=== PATIENT | male | born 1965 | race Caucasian/White ===

== ENCOUNTER 2019-01-29 06:45 | Inpatient (IN) | payer SELFPAY ==
[~2019-01-29] VITALS: Ht 177.8 cm; Wt 85.7 kg
[2019-01-29 06:45] VITALS: BP_SYST 158
[2019-01-29] MEDS ORDERED: NACL 0.9% 1,000 ML IV ONE (07:00)
[2019-01-29] MEDS ORDERED: ONDANSETRON HCL 4 MG/2 ML VIAL IVP ONE (07:00)
[2019-01-29] MEDS ORDERED: KETOROLAC TROMETHAMINE 30 MG VIAL IVP ONE (07:00)
[2019-01-29 07:38] LABS: BASOPHILS # (AUTO) 0.1 K/uL (0.0-0.2); BASOPHILS % (AUTO) 0.5 % (0.0-2.0); EOSINOPHILS # (AUTO) 0.5 K/uL (0.0-0.4); EOSINOPHILS % (AUTO) 4.5 % (0.0-4.0); HEMATOCRIT 39.6 % (36-54); HEMOGLOBIN 13.2 g/dL (14.0-18.0); LYMPHOCYTES # (AUTO) 0.7 K/uL (1.0-5.5); LYMPHOCYTES % (AUTO) 6.1 % (20.5-51.5); MEAN CORPUSCULAR HEMOGLOBIN 30 pg (27-31); MEAN CORPUSCULAR HGB CONC 33 % (32-36); MEAN CORPUSCULAR VOLUME 91 fL (79.0-98.0); MONOCYTES # (AUTO) 0.7 K/uL (0.0-1.0); MONOCYTES % (AUTO) 6.3 % (1.7-9.3); NEUTROPHILS # (AUTO) 9.7 K/uL (1.8-7.7); NEUTROPHILS % (AUTO) 82.6 % (40.0-70.0); PLATELET COUNT (AUTO) 443 K/uL (130-430); RED BLOOD CELL COUNT(AUTO) 4.35 MIL/uL (4.2-6.2); RED CELL DISTRIBUTION WIDTH 13.9 % (9.0-15.0); WHITE BLOOD COUNT (AUTO) 11.8 K/uL (4.8-10.8)
[2019-01-29 07:52] LABS: CALCIUM 8.3 mg/dL (8.4-11.0); CREATININE 0.74 mg/dL (0.55-1.30)
[2019-01-29 07:57] LABS: ALBUMIN 2.7 g/dL (3.4-4.8); TOTAL BILIRUBIN 0.4 mg/dL (0.0-1.0)
[2019-01-29] MEDS ORDERED: MELA5TAB21 PO (09:03)
[2019-01-29] MEDS ORDERED: LANS15CA14 PO (09:03)
[2019-01-29] MEDS ORDERED: NAPR220C15 PO (09:03)
[2019-01-29] MEDS ORDERED: PANTOPRAZOLE SODIUM 40 MG TAB PO ONE (09:30)
[2019-01-29] MEDS ORDERED: DOCUSATE SODIUM 100 MG/10 ML UDC PO PRN (09:30)
[2019-01-29] MEDS ORDERED: HYDROcodone/ACETAMIN 7.5-325 MG TAB PO PRN (09:30)
[2019-01-29] MEDS ORDERED: MORPHINE 2 MG/ML INJ. SYRINGE IVP PRN (09:30)
[2019-01-29] MEDS ORDERED: ONDANSETRON HCL 4 MG/2 ML VIAL IVP PRN (09:30)
[2019-01-29] MEDS ORDERED: ACETAMINOPHEN 500 MG TABLET PO PRN (09:30)
[2019-01-29 10:07] VITALS: BP_SYST 138
[2019-01-29 10:09] LABS: AMYLASE 434 U/L (0-100); CHOLESTEROL 104 mg/dL (<200); FREE T4 (FREE THYROXINE) 0.8 ng/dL (0.6-1.6); HDL CHOLESTEROL 22 mg/dL (>45); INR 1.1 (0.80-1.20); LDL CHOLESTEROL 72 mg/dL (<100); PHOSPHORUS 3.1 mg/dL (2.7-4.5); PROTHROMBIN TIME 10.9 SECS (9.5-12.5); TRIGLYCERIDES 52 mg/dL (30-150)
[2019-01-29 10:21] LABS: ALCOHOL, BLOOD < 3 mg/dL (<10)
[2019-01-29] MEDS: D5NS 1,000 ML IV SCH ×3 (10:30→23:14)
[2019-01-29 10:32] LABS: BILIRUBIN,URINE NEGATIVE (NEGATIVE); BLOOD, URINE NEGATIVE (NEGATIVE); CLARITY/URINE CLEAR (CLEAR); COLOR,URINE YELLOW (YELLOW); GLUCOSE,URINE NEGATIVE (NEGATIVE); KETONES,URINE NEGATIVE (NEGATIVE); LEUKOCYTE ESTERASE ,URINE NEGATIVE (NEGATIVE); NITRITE, URINE NEGATIVE (NEGATIVE); PROTEIN URINE TRACE (NEGATIVE); UROBILINOGEN,URINE 0.2 (0.2-1.0)
[2019-01-29 10:41] LABS: BACTERIA,URINE FEW /HPF (None Seen); MUCUS,URINE None Seen /LPF (None Seen); RBC,URINE 0-3 /HPF (0-3); WBC,URINE 0-3 /HPF (0-3)
[2019-01-29 10:50] LABS: BARBITURATE, URINE NEGATIVE (NEG <=200); BENZODIAZEPINE, URINE NEGATIVE (NEG <=150); CANNABINOID, URINE NEGATIVE (NEG <=50); COCAINE, URINE NEGATIVE (NEG <=150); METHAMPHETAMINES SCREEN,URINE NEGATIVE (NEG <=500); OPIATE, URINE NEGATIVE (NEG <=100); PHENCYCLIDINE SCREEN,URINE NEGATIVE (NEG <=25); UR TRICYCLIC ANTIDEPRESSANTS NEGATIVE (NEG <=300); URINE AMPHETAMINE NEGATIVE (NEG <=500); URINE METHADONE NEGATIVE (NEG <=200); URINE OXYCODONE SCREEN NEGATIVE (NEG <=100); URINE PROPOXYPHENE SCREEN NEGATIVE (NEG <=300)
[2019-01-29] MEDS: KETOROLAC TROMETHAMINE 30 MG VIAL IVP SCH ×2 (14:56→22:56)
[2019-01-29] MEDS: HYDROmorphone 1 MG INJ. 1 MG/ML AMPUL IVP PRN ×2 (15:08→23:07)
[2019-01-29 16:38] VITALS: BP_SYST 125
[2019-01-29 20:00] VITALS: BP_SYST 108
[2019-01-30 00:01] VITALS: BP_SYST 122
[2019-01-30] MEDS: HYDROmorphone 1 MG INJ. 1 MG/ML AMPUL IVP PRN ×5 (01:18→21:42)
[2019-01-30] MEDS: D5NS 1,000 ML IV SCH ×4 (02:25→21:42)
[2019-01-30 05:00] VITALS: BP_SYST 124
[2019-01-30 06:24] LABS: BASOPHILS % (AUTO) 0.6 % (0.0-2.0); EOSINOPHILS # (AUTO) 0.6 K/uL (0.0-0.4); EOSINOPHILS % (AUTO) 7.8 % (0.0-4.0); HEMATOCRIT 36.8 % (36-54); HEMOGLOBIN 12.4 g/dL (14.0-18.0); LYMPHOCYTES # (AUTO) 0.6 K/uL (1.0-5.5); LYMPHOCYTES % (AUTO) 7.8 % (20.5-51.5); MEAN CORPUSCULAR HEMOGLOBIN 31 pg (27-31); MEAN CORPUSCULAR HGB CONC 34 % (32-36); MEAN CORPUSCULAR VOLUME 92 fL (79.0-98.0); MONOCYTES # (AUTO) 0.8 K/uL (0.0-1.0); MONOCYTES % (AUTO) 11.5 % (1.7-9.3); NEUTROPHILS # (AUTO) 5.2 K/uL (1.8-7.7); NEUTROPHILS % (AUTO) 72.3 % (40.0-70.0); PLATELET COUNT (AUTO) 426 K/uL (130-430); RED BLOOD CELL COUNT(AUTO) 4.02 MIL/uL (4.2-6.2); RED CELL DISTRIBUTION WIDTH 14.3 % (9.0-15.0); WHITE BLOOD COUNT (AUTO) 7.2 K/uL (4.8-10.8)
[2019-01-30 07:25] LABS: CALCIUM 8.4 mg/dL (8.4-11.0); CREATININE 0.82 mg/dL (0.55-1.30); POTASSIUM 3.9 mmol/L (3.5-5.1)
[2019-01-30 08:00] VITALS: BP_SYST 133
[2019-01-30] MEDS: KETOROLAC TROMETHAMINE 30 MG VIAL IVP SCH (08:00)
[2019-01-30] MEDS: PANTOPRAZOLE SODIUM 40 MG TAB PO SCH (09:33)
[2019-01-30 12:27] VITALS: BP_SYST 126
[2019-01-30 16:27] VITALS: BP_SYST 142
[2019-01-30 20:22] VITALS: BP_SYST 145
[2019-01-31] MEDS: D5NS 1,000 ML IV SCH ×4 (01:17→16:26)
[2019-01-31 02:33] VITALS: BP_SYST 146
[2019-01-31 06:25] LABS: BASOPHILS % (AUTO) 0.4 % (0.0-2.0); EOSINOPHILS # (AUTO) 0.7 K/uL (0.0-0.4); EOSINOPHILS % (AUTO) 7.7 % (0.0-4.0); HEMATOCRIT 33.7 % (36-54); HEMOGLOBIN 11.3 g/dL (14.0-18.0); LYMPHOCYTES # (AUTO) 0.7 K/uL (1.0-5.5); LYMPHOCYTES % (AUTO) 7.3 % (20.5-51.5); MEAN CORPUSCULAR HEMOGLOBIN 31 pg (27-31); MEAN CORPUSCULAR HGB CONC 34 % (32-36); MEAN CORPUSCULAR VOLUME 91 fL (79.0-98.0); MONOCYTES # (AUTO) 0.9 K/uL (0.0-1.0); MONOCYTES % (AUTO) 9.7 % (1.7-9.3); NEUTROPHILS # (AUTO) 7.1 K/uL (1.8-7.7); NEUTROPHILS % (AUTO) 74.9 % (40.0-70.0); PLATELET COUNT (AUTO) 408 K/uL (130-430); RED BLOOD CELL COUNT(AUTO) 3.69 MIL/uL (4.2-6.2)
[2019-01-31 06:44] LABS: AMYLASE 775 U/L (0-100); CALCIUM 8.1 mg/dL (8.4-11.0); CHLORIDE 108 mmol/L (98-107); CREATININE 0.72 mg/dL (0.55-1.30); GLUCOSE 130 mg/dL (70-99); POTASSIUM 3.8 mmol/L (3.5-5.1); SODIUM SERUM 137 mmol/L (136-145); UREA NITROGEN, BLOOD 12 mg/dL (8-21)
[2019-01-31 06:47] LABS: GFR AFRICAN AMERICAN 146 mL/min (>90)
[2019-01-31 06:49] LABS: ANION GAP < 3 (5-15)
[2019-01-31 07:04] LABS: WHITE BLOOD COUNT (AUTO) 9.5 K/uL (4.8-10.8)
[2019-01-31 08:38] LABS: LIPASE 4176 U/L (73-393)
[2019-01-31] MEDS: PANTOPRAZOLE SODIUM 40 MG TAB PO SCH (08:55)
[2019-01-31 08:56] VITALS: BP_SYST 122
[2019-01-31] MEDS: HYDROmorphone 1 MG INJ. 1 MG/ML AMPUL IVP PRN ×3 (10:31→21:05)
[2019-01-31 12:43] VITALS: BP_SYST 140
[2019-01-31 16:34] VITALS: BP_SYST 141
[2019-01-31 16:35] VITALS: BP_SYST 141
[2019-01-31 20:00] VITALS: BP_SYST 135
[2019-02-01 00:35] VITALS: BP_SYST 121
[2019-02-01] MEDS: D5NS 1,000 ML IV SCH (03:48)
[2019-02-01 07:55] VITALS: BP_SYST 139
[2019-02-01] MEDS: PANTOPRAZOLE SODIUM 40 MG TAB PO SCH (08:43)
[2019-02-01] MEDS: HYDROmorphone 1 MG INJ. 1 MG/ML AMPUL IVP PRN (10:44)
[2019-02-01] MEDS ORDERED: PRO40 PO (11:13)
[2019-02-01 12:01] VITALS: BP_SYST 132
[2019-02-01 12:55] VITALS: BP_SYST 138
== END 2019-02-01 14:40 | disposition home or self-care (01) | DRG 438 ==
LOC: SED 06:45 → SMU 09:16
PROVIDERS: ADMIT Family Medicine; ATTEND Family Medicine
DX: K85.20 Alcohol induced acute pancreatitis without necrosis or infection (principal); N17.0 Acute kidney failure with tubular necrosis; E43 Unspecified severe protein-calorie malnutrition; R18.8 Other ascites; J45.909 Unspecified asthma, uncomplicated; K21.9 Gastro-esophageal reflux disease without esophagitis; E86.0 Dehydration; K57.30 Diverticulosis of large intestine without perforation or abscess without bleeding; F10.10 Alcohol abuse, uncomplicated; D64.9 Anemia, unspecified; Z88.0 Allergy status to penicillin; Z68.27 Body mass index [BMI] 27.0-27.9, adult
CPT/HCPCS: 36415; 71045; 76700-TC; 76857; 80048; 80053; 80061; 80307; 81000-TC; 82040-TC; 82150-TC; 83036; 83605; 83690-TC; 83735-TC; 83880; 84100-TC; 84439; 84443-TC; 84484; 85025; 85610-TC; 85730-TC; 87086; 93005; 96361; 96374; 96375; 99285; G0482; J1170; J1885; J2270; J2405; J7042

== ENCOUNTER 2022-10-12 13:09 | Inpatient (IN) | payer OTHER ==
[~2022-10-12] VITALS: Ht 177.8 cm; Wt 74.4 kg
[~2022-10-12 13:09] MED LIST: LANS15CA14 PO; MELA5TAB21 PO; NAPR220C15 PO
[2022-10-12 13:19] VITALS: BP_SYST 151
--- NOTE | 2022-10-12 13:20 | NUR ---
Placed in room 02 . Placed on awake overnight monitor, blood pressure machine and pulse oximeter. To gown for exam. Side rails up. Report given to CHARLETTE DE.
--- NOTE | 2022-10-12 13:25 | NUR ---
RECEIVED PT FROM CHARLETTE TORRES. BIB SELF FROM HOME, PT STATES HE HAS CHRONIC PANCREATITIS AND HAD C/O OF ABDOMINAL PAIN AND CONSTIPATION. PT IS AAOX4. NO R/A. ABDOMEN SOFT, TENDER, NONDISTENDED. BOWEL SOUNDS ACTIVE X4 QUADS. DISTAL PULSES NORMAL. SKIN CDI, NO EDEMA. SIDERAILS UP X2.
--- NOTE | 2022-10-12 13:27 | NUR ---
DR. JULIO AT BEDSIDE TO ASSESS PT.
[2022-10-12] MEDS ORDERED: ONDANSETRON HCL 4 MG/2 ML VIAL IVP ONE (13:30)
[2022-10-12] MEDS ORDERED: MORPHINE 4 MG INJ. 4 MG/ML VIAL IVP ONE ×2 (13:30→15:00)
[2022-10-12] MEDS ORDERED: NACL 0.9% 1,000 ML IV ONE (13:30)
--- NOTE | 2022-10-12 13:40 | NUR ---
BLOOD OBTAINED AND TAKEN TO LAB.
--- NOTE | 2022-10-12 13:45 | NUR ---
# 20 gauge angiocath placed to LAC. Use of asceptic technique. Opsite placed over site. Blood return noted. Flushed with 10 cc of normal saline. No evidence of infiltration noted. Patient tolerated well.
[2022-10-12 13:47] LABS: BASOPHILS # (AUTO) 0.1 K/uL (0.0-0.2); BASOPHILS % (AUTO) 0.5 % (0.0-2.0); EOSINOPHILS # (AUTO) 0.3 K/uL (0.0-0.4); EOSINOPHILS % (AUTO) 2.3 % (0.0-4.0); HEMATOCRIT 44.1 % (36-54); HEMOGLOBIN 14.6 g/dL (14.0-18.0); LYMPHOCYTES # (AUTO) 0.7 K/uL (1.0-5.5); LYMPHOCYTES % (AUTO) 5.2 % (20.5-51.5); MEAN CORPUSCULAR HEMOGLOBIN 30 pg (27-31); MEAN CORPUSCULAR HGB CONC 33 % (32-36); MEAN CORPUSCULAR VOLUME 90 fL (79.0-98.0); MONOCYTES # (AUTO) 0.9 K/uL (0.0-1.0); MONOCYTES % (AUTO) 6.5 % (1.7-9.3); NEUTROPHILS # (AUTO) 12.2 K/uL (1.8-7.7); NEUTROPHILS % (AUTO) 85.5 % (40.0-70.0); PLATELET COUNT (AUTO) 372 K/uL (130-430); RED BLOOD CELL COUNT(AUTO) 4.89 MIL/uL (4.2-6.2); RED CELL DISTRIBUTION WIDTH 15.2 % (9.0-15.0); WHITE BLOOD COUNT (AUTO) 14.3 K/uL (4.8-10.8)
--- NOTE | 2022-10-12 13:59 | NUR ---
NS 1000ML IV BOLUS INITIATED TO BE COMPLETED AT 1500. MORPHINE 4MG IVP GIVEN FOR ABDOMINAL PAIN 02/18 AND ZOFRAN IVP GIVEN. ZOFRAN 4MG IVP GIVEN.
[2022-10-12] MEDS ORDERED: AMYL1CAP56 PO (14:20)
--- NOTE | 2022-10-12 14:20 | NUR ---
MED REC COMPLETED.
--- NOTE | 2022-10-12 14:21 | NUR ---
COVID SAMPLE OBTAINED.
[2022-10-12 14:30] LABS: ALANINE AMINOTRANSFERASE 34 U/L (12-78); ALBUMIN 3.8 g/dL (3.4-4.8); ANION GAP 10 (5-15); ASPARTATE AMINOTRANSFERASE 43 U/L (10-37); CALCIUM 9.1 mg/dL (8.4-11.0); CHLORIDE 104 mmol/L (98-107); CREATININE 1.58 mg/dL (0.55-1.30); GFR AFRICAN AMERICAN 58 mL/min (>90); GLUCOSE 112 mg/dL (70-99); TOTAL BILIRUBIN 0.7 mg/dL (0.0-1.0); UREA NITROGEN, BLOOD 28 mg/dL (8-21)
[2022-10-12 14:34] LABS: LIPASE 3312 U/L (73-393)
[2022-10-12 14:52] LABS: BILIRUBIN,URINE NEGATIVE (NEGATIVE); BLOOD, URINE 1+ (NEGATIVE); CLARITY/URINE CLEAR (CLEAR); COLOR,URINE YELLOW (YELLOW); GLUCOSE,URINE NEGATIVE (NEGATIVE); KETONES,URINE NEGATIVE (NEGATIVE); LEUKOCYTE ESTERASE ,URINE NEGATIVE (NEGATIVE); NITRITE, URINE NEGATIVE (NEGATIVE); PH,URINE 5.5 (5.0-8.0); PROTEIN URINE TRACE (NEGATIVE); UROBILINOGEN,URINE 0.2 (0.2-1.0)
[2022-10-12 15:21] LABS: BACTERIA,URINE RARE /HPF (None Seen); RBC,URINE 0-3 /HPF (0-3); WBC,URINE NONE SEEN /HPF (0-3)
[2022-10-12 15:22] LABS: HYALINE CASTS, URINE 0-10 /LPF (None Seen)
[2022-10-12 15:24] LABS: MUCUS,URINE 1+ /LPF (None Seen)
--- NOTE | 2022-10-12 16:13 | NUR ---
AAdmit bed requested Patient will be admitted to care of . Admitted to MEDICAL SURGICAL unit. Diagnosis PANCREATITIS Inpatient (Yes or No) YES Observation (Yes or No) NO Orientation concerns or request close to nursing station (Yes or No) NO Covid Status NEGATIVE On vent or bipap NO Isolation requirements NO Needs a sitter NO From Home (Yes or if No enter name of facility) YES Requires Dialysis (Yes or No) NO Med Rec Completed (Yes of No) YES
[2022-10-12] MEDS: D5NS 1,000 ML IV SCH ×2 (16:15)
[2022-10-12] MEDS ORDERED: [UNRECOGNIZED DRUG - OTHER] PO SCH (17:00)
[2022-10-12] MEDS ORDERED: LIPASE PO SCH (17:00)
[2022-10-12] MEDS ORDERED: MUPIROCIN 2% TOPICAL OINTMENT 22 GM NS PRN (17:00)
[2022-10-12] MEDS ORDERED: PROTEASE PO SCH (17:00)
[2022-10-12] MEDS ORDERED: AMYLASE PO SCH (17:00)
[2022-10-12] MEDS ORDERED: ZOLPIDEM TARTRATE 5 MG TABLET PO PRN (17:00)
[2022-10-12] MEDS ORDERED: MAGNESIUM SULFATE 50 ML IV PRN (17:00)
[2022-10-12] MEDS ORDERED: ACETAMINOPHEN 325 MG TABLET PO PRN ×2 (17:00)
[2022-10-12] MEDS ORDERED: DOCUSATE SODIUM 100 MG CAPSULE PO PRN (17:00)
[2022-10-12] MEDS ORDERED: LORazepam 2 MG/ML VIAL IVP PRN (17:00)
[2022-10-12] MEDS ORDERED: NON-FORMULARY MEDICATION (Melatonin 5 MG) PO SCH (17:00)
[2022-10-12] MEDS ORDERED: MORPHINE 2 MG/ML INJ. SYRINGE IVP PRN ×2 (17:00)
[2022-10-12] MEDS ORDERED: POTASSIUM CHLORIDE 20 MEQ TAB.PRT.SR PO PRN (17:00)
[2022-10-12] MEDS: MORPHINE 2 MG/ML INJ. SYRINGE IVP PRN (18:14)
--- NOTE | 2022-10-12 18:15 | NUR ---
MORPHINE 2MG IVP GIVEN FOR ABDOMINAL PAIN 02/18. D5 NS AT 150ML/HOUR INITIATED.
--- NOTE | 2022-10-12 19:00 | NUR ---
Received in bed 2 A&OX4, NAD, pt awaiting for bed for med surge at this time.
--- NOTE | 2022-10-12 19:25 | NUR ---
PT ENDORSED TO CHARLETTE RIVAS. ALL QUESTIONS AND CONCERNS ADDRESSED.
--- NOTE | 2022-10-12 20:06 | NUR ---
Patient will be admitted to care of Dr. Hurst. Admitted to Med/surg unit. Will go to room 118A. Belongings list completed. Complete and up to date summary report printed. SBAR report to be given at bedside to CHARLETTE Goyal with opportunity for questions. Left via w/c for transfort with staff member. All belongings with pt.
--- NOTE | 2022-10-12 20:15 | NUR ---
ADMISSION NOTE Received patient from ER via gurney. Patient admitted with diagnosis of PANCREATITIS. Patient is awake, alert, oriented X 4. Patient oriented to hospital room, call light, toileting, pain management and safety-teach back done. Patient informed that their room number is 118A. Personal belongings checked and Belongings List documented. Call light within reach.
[2022-10-12 21:45] VITALS: BP_SYST 117
[2022-10-13] MEDS: ONDANSETRON HCL 4 MG/2 ML VIAL IVP PRN ×4 (00:18→19:33)
[2022-10-13] MEDS: MORPHINE 2 MG/ML INJ. SYRINGE IVP PRN ×5 (00:19→23:00)
[2022-10-13 00:40] VITALS: BP_SYST 131
[2022-10-13] MEDS: D5NS 1,000 ML IV SCH ×3 (05:16→18:15)
[2022-10-13 06:22] VITALS: BP_SYST 129
[2022-10-13 06:28] LABS: BASOPHILS # (AUTO) 0.1 K/uL (0.0-0.2); BASOPHILS % (AUTO) 0.6 % (0.0-2.0); EOSINOPHILS # (AUTO) 0.4 K/uL (0.0-0.4); EOSINOPHILS % (AUTO) 3.1 % (0.0-4.0); HEMATOCRIT 40.8 % (36-54); HEMOGLOBIN 13.5 g/dL (14.0-18.0); LYMPHOCYTES # (AUTO) 0.6 K/uL (1.0-5.5); LYMPHOCYTES % (AUTO) 5.2 % (20.5-51.5); MEAN CORPUSCULAR HEMOGLOBIN 30 pg (27-31); MEAN CORPUSCULAR HGB CONC 33 % (32-36); MEAN CORPUSCULAR VOLUME 90 fL (79.0-98.0); MONOCYTES # (AUTO) 0.8 K/uL (0.0-1.0); MONOCYTES % (AUTO) 6.6 % (1.7-9.3); NEUTROPHILS # (AUTO) 9.6 K/uL (1.8-7.7); NEUTROPHILS % (AUTO) 84.5 % (40.0-70.0); PLATELET COUNT (AUTO) 323 K/uL (130-430); RED BLOOD CELL COUNT(AUTO) 4.56 MIL/uL (4.2-6.2); RED CELL DISTRIBUTION WIDTH 14.9 % (9.0-15.0); WHITE BLOOD COUNT (AUTO) 11.4 K/uL (4.8-10.8)
--- NOTE | 2022-10-13 06:34 | NUR ---
PT ADMITTED TO [facility] FLOOR FOR ABDOMINAL PAIN, NAUSEA AND VOMITING . PAST MEDICAL HX OF PANCREATITIS. HX OF GASTRIC SLEEVE 10 YEARS AGO. PAIN MANAGEMENT PROVIDED. ZOFRAN WAS GIVEN FOR NAUSEA. COMFORT MEASURES ARE PROVIDED
[2022-10-13 06:56] LABS: CALCIUM 8.8 mg/dL (8.4-11.0); CREATININE 0.89 mg/dL (0.55-1.30)
[2022-10-13] MEDS: LIPASE/PROTEASE/AMYLASE 1 CAP PO SCH ×3 (08:43→17:46)
[2022-10-13] MEDS: LANSOPRAZOLE 30 MG CAPSULE.DR PO SCH (08:44)
[2022-10-13] MEDS ORDERED: LANSOPRAZOLE PO SCH (09:00)
--- NOTE | 2022-10-13 09:15 | NUR ---
RECEIVED REPORT ON PATIENT FROM CHARLETTE MAYFIELD, ASSUMED CARE, AND STARTED ASSESSMENT.
--- NOTE | 2022-10-13 10:00 | NUR ---
PATIENT ATTEMPTED TO TAKE A FEW SIPS OF WATER, BECAME NAUSEOUS AND UNABLE TO TOLERATE, WILL TRY AGAIN AT LUNCH TIME
--- NOTE | 2022-10-13 12:30 | NUR ---
PATIENT UNABLE TO TOLERATE CLEAR LIQUID LUNCH, PATIENT VOMITED AFTER 2 SPOONS OF JELLO, WILL OBSERVE PATIENT AT DINNER TIME
[2022-10-13 13:08] VITALS: BP_SYST 128
[2022-10-13 14:26] LABS: BARBITURATE, URINE NEGATIVE (NEG <=200); BENZODIAZEPINE, URINE NEGATIVE (NEG <=150); CANNABINOID, URINE NEGATIVE (NEG <=50); COCAINE, URINE NEGATIVE (NEG <=150); METHAMPHETAMINES SCREEN,URINE NEGATIVE (NEG <=500); OPIATE, URINE POSITIVE (NEG <=100); PHENCYCLIDINE SCREEN,URINE NEGATIVE (NEG <=25); UR TRICYCLIC ANTIDEPRESSANTS NEGATIVE (NEG <=300); URINE AMPHETAMINE NEGATIVE (NEG <=500); URINE METHADONE NEGATIVE (NEG <=200); URINE OXYCODONE SCREEN NEGATIVE (NEG <=100); URINE PROPOXYPHENE SCREEN NEGATIVE (NEG <=300)
[2022-10-13 17:16] VITALS: BP_SYST 148
[2022-10-13 20:00] VITALS: BP_SYST 114
[2022-10-14] VITALS: BP_SYST 107
[2022-10-14] MEDS: MORPHINE 2 MG/ML INJ. SYRINGE IVP PRN ×4 (03:14→22:06)
[2022-10-14 06:36] LABS: BASOPHILS # (AUTO) 0.1 K/uL (0.0-0.2); EOSINOPHILS # (AUTO) 0.4 K/uL (0.0-0.4); EOSINOPHILS % (AUTO) 5.7 % (0.0-4.0); HEMATOCRIT 35.6 % (36-54); HEMOGLOBIN 12.1 g/dL (14.0-18.0); LYMPHOCYTES # (AUTO) 0.9 K/uL (1.0-5.5); LYMPHOCYTES % (AUTO) 13.1 % (20.5-51.5); MEAN CORPUSCULAR HEMOGLOBIN 30 pg (27-31); MEAN CORPUSCULAR HGB CONC 34 % (32-36); MEAN CORPUSCULAR VOLUME 90 fL (79.0-98.0); MONOCYTES # (AUTO) 0.5 K/uL (0.0-1.0); MONOCYTES % (AUTO) 7.7 % (1.7-9.3); NEUTROPHILS # (AUTO) 5.2 K/uL (1.8-7.7); NEUTROPHILS % (AUTO) 72.5 % (40.0-70.0); PLATELET COUNT (AUTO) 249 K/uL (130-430); RED BLOOD CELL COUNT(AUTO) 3.97 MIL/uL (4.2-6.2); WHITE BLOOD COUNT (AUTO) 7.1 K/uL (4.8-10.8)
[2022-10-14 07:07] LABS: CREATININE 0.78 mg/dL (0.55-1.30)
--- NOTE | 2022-10-14 07:30 | NUR ---
received pt alert, oriented, no distress. skin warm and dry. respirations even, unlabored. iv intact with fluid per orders. using urinal. call light in reach
[2022-10-14] MEDS: LANSOPRAZOLE 30 MG CAPSULE.DR PO SCH (08:07)
[2022-10-14] MEDS: LIPASE/PROTEASE/AMYLASE 1 CAP PO SCH ×3 (08:07→17:46)
[2022-10-14 08:13] VITALS: BP_SYST 139
[2022-10-14] MEDS ORDERED: ACETAMINOPHEN 325 MG TABLET PO PRN (08:15)
[2022-10-14] MEDS ORDERED: HYDR-3917 PO ×2 (08:17)
[2022-10-14] MEDS ORDERED: NALOXONE HCL 0.4 MG/ML AMP (NARCAN) IVP PRN ×2 (08:30→15:00)
[2022-10-14 11:46] VITALS: BP_SYST 121
[2022-10-14] MEDS: D5NS 1,000 ML IV SCH ×3 (12:47→20:56)
[2022-10-14] MEDS: ONDANSETRON HCL 4 MG/2 ML VIAL IVP PRN ×2 (12:48→17:53)
[2022-10-14] MEDS: HYDROcodone/ACETAMIN 5-325 MG TAB (NORCO/ VICODIN) PO PRN ×2 (12:48→20:56)
--- NOTE | 2022-10-14 13:00 | NUR ---
notified Dr Hurst that pt not tolerated lunch tray. nauseated with abd pain. medicated per orders. Dr Hurst states to keep pt NPO for now, reassess in a few hours.
[2022-10-14] MEDS ORDERED: METOCLOPRAMIDE HCL 10 MG/2 ML VIAL IVP ONE (13:15)
--- NOTE | 2022-10-14 15:26 | NUR ---
medicated again for nausea. PT Munir here to see pt who is c/o pain in left knee. called CT who states they will picker pt in approximately 1 hour.
--- NOTE | 2022-10-14 16:00 | NUR ---
pt taken via wheelchair to CT
--- NOTE | 2022-10-14 17:00 | NUR ---
called and spoke with Dr Hurst. notified of CT abd result. states to hold discharge. will order antibiotic, GI consult, NPO x meds, and states he reinstated morphine prn.
--- NOTE | 2022-10-14 17:14 | NUR ---
CONSULTATION PAGED REASON FOR CONSULTATION:PANCREATIC PSEUDOCYST INT N V WAS CONSULT CALLED?Y PERSON WHO WAS NOTIFIED:VIRGIL CONSULTING PHYSICIAN:MARTIR BARON ([employer] STEPHENSON TECHNICAL BUYER) RETAIL BEAUTY SPECIALIST SPECIALTY:GI RETAIL BEAUTY SPECIALIST PHONE NUMBER:[phone] REQUESTING PHYSICIAN:GARRISON SONG
[2022-10-14] MEDS ORDERED: PANTOPRAZOLE SODIUM 40 MG/VIAL (PROTONIX) IVP ONE (17:15)
[2022-10-14] MEDS ORDERED: PIPERACILLIN/TAZO 3.375/DEX-IS 50 ML IV SCH (17:15)
[2022-10-14 17:34] VITALS: BP_SYST 124
[2022-10-14] MEDS: VANCOMYCIN HCL 1,250 MG in NS 250 ML IV SCH (19:15)
--- NOTE | 2022-10-14 19:15 | NUR ---
OPENING NOTE REPORT RECEIVED FROM DAYSHIFT NURSE. PATIENT RECEIVED LYING IN BED, AWAKE, NO S/S OF ACUTE DISTRESS. BREATHING EVEN AND UNLABORED. HOB RAISED. IVF INFUSING WELL, IV SITE PATENT, NO SIGNS OF INFILTRATION OR INFECTION NOTED. CALL LIGHT WITH PATIENT. BED IS LOCKED AND AT LOWEST POSITION. WILL CONTINUE TO MONITOR.
[2022-10-14 20:00] VITALS: BP_SYST 142
--- NOTE | 2022-10-14 23:00 | NUR ---
ROUNDS PATIENT IN BED, RESTING. NO SIGNS OF DISCOMFORT. CHEST RISE AND FALL EVEN BILATERALLY. ALL NEEDS MET. WILL MONITOR.
[2022-10-15] VITALS: BP_SYST 138
[2022-10-15] MEDS: MELATONIN 5 MG TABLET PO PRN ×2 (00:05→23:44)
[2022-10-15] MEDS: ONDANSETRON HCL 4 MG/2 ML VIAL IVP PRN ×3 (00:05→14:27)
[2022-10-15] MEDS: MORPHINE 2 MG/ML INJ. SYRINGE IVP PRN ×6 (02:11→21:59)
--- NOTE | 2022-10-15 03:00 | NUR ---
ROUNDS NO CHANGE IN CONDITION FROM PREVIOUS NOTE. ALL NEEDS MET. WILL MONITOR.
[2022-10-15] MEDS: D5NS 1,000 ML IV SCH ×3 (06:12→17:52)
[2022-10-15] MEDS: VANCOMYCIN HCL 1,250 MG in NS 250 ML IV SCH (06:13)
--- NOTE | 2022-10-15 06:49 | NUR ---
CLOSING NOTE PATIENT IN BED RESTING. NO S/S OF ACUTE DISTRESS. BREATHING EVEN AND UNLABORED. IVF INFUSING WELL. IV SITE PATENT, NO SIGNS OF INFILTRATION OR INFECTION NOTED. ALL NEEDS MET THROUGHOUT SHIFT. FALL, SAFETY PRECAUTIONS MAINTAINED THROUGHOUT SHIFT. WILL CONTINUE TO MONITOR UNTIL PATIENT CARE IS ENDORSED TO ONCOMING DAYSHIFT NURSE.
[2022-10-15 07:38] LABS: BASOPHILS # (AUTO) 0.1 K/uL (0.0-0.2); BASOPHILS % (AUTO) 1.2 % (0.0-2.0); CALCIUM 8.1 mg/dL (8.4-11.0); CREATININE 0.73 mg/dL (0.55-1.30); EOSINOPHILS # (AUTO) 0.4 K/uL (0.0-0.4); EOSINOPHILS % (AUTO) 5.6 % (0.0-4.0); HEMATOCRIT 35.3 % (36-54); HEMOGLOBIN 11.7 g/dL (14.0-18.0); LYMPHOCYTES # (AUTO) 0.9 K/uL (1.0-5.5); LYMPHOCYTES % (AUTO) 13.3 % (20.5-51.5); MEAN CORPUSCULAR HEMOGLOBIN 30 pg (27-31); MEAN CORPUSCULAR HGB CONC 33 % (32-36); MEAN CORPUSCULAR VOLUME 90 fL (79.0-98.0); MONOCYTES # (AUTO) 0.4 K/uL (0.0-1.0); MONOCYTES % (AUTO) 6.1 % (1.7-9.3); NEUTROPHILS # (AUTO) 5.2 K/uL (1.8-7.7); NEUTROPHILS % (AUTO) 73.8 % (40.0-70.0); PLATELET COUNT (AUTO) 276 K/uL (130-430); RED CELL DISTRIBUTION WIDTH 14.7 % (9.0-15.0); WHITE BLOOD COUNT (AUTO) 7.1 K/uL (4.8-10.8)
[2022-10-15] MEDS: LIPASE/PROTEASE/AMYLASE 1 CAP PO SCH ×3 (07:49→17:52)
--- NOTE | 2022-10-15 08:49 | NUR ---
CONSULTATION PAGED/CALLED Reason for Consultation: [] PANCREATIC PSEUDOCYST Person Who was Notified: [] ANA Consulting Physician: [] DR TAI Tar Roofer Specialty: [] ID Ordering Physician: [] DR ECHEVERRIA
[2022-10-15] MEDS: METOCLOPRAMIDE HCL 10 MG/2 ML VIAL IVP PRN ×2 (09:47→18:18)
[2022-10-15] MEDS: PANTOPRAZOLE SODIUM 40 MG/VIAL (PROTONIX) IVP SCH (09:47)
[2022-10-15 12:37] VITALS: BP_SYST 135
[2022-10-15] MEDS: HYDROcodone/ACETAMIN 5-325 MG TAB (NORCO/ VICODIN) PO PRN ×2 (14:48→23:45)
--- NOTE | 2022-10-15 15:55 | NUR ---
PHYSICAL THERAPY CO-SIGN The Physical Therapy Progress Notes documented by Grid Casting Machine Operator Helper have been reviewed. Reviewed/Co-Signed by: Munir Skelton Documentation Done by:PARVIZ SANABRIA Addendum: 10/15/22 at 1555 by Munir Skelton PT Amended: Links added.
[2022-10-15 16:01] VITALS: BP_SYST 124; BP_SYST 135; BP_SYST 144
--- NOTE | 2022-10-15 16:04 | NUR ---
Dietitian Recommendations * Continue NPO per physician * Consider advance to Low-Fat diet if/when medically appropriate LP, MS, RD Please refer to Nutrition Assessment for details. Addendum: 10/15/22 at [address] Amended: Links added.
--- NOTE | 2022-10-15 19:15 | NUR ---
OPENING NOTE PATIENT IN BED, RESTING, NO S/S OF ACUTE DISTRESS. BREATHING EVEN AND UNLABORED. IVF INFUSING WELL. CALL LIGHT WITH PATIENT. BED ALARM ON. BED IS LOCKED AND AT LOWEST POSITION. WILL CONTINUE TO MONITOR.
[2022-10-15 20:00] VITALS: BP_SYST 149
--- NOTE | 2022-10-15 23:00 | NUR ---
ROUNDS PATIENT RESTING. NO SIGNS OF DISCOMFORT. CHEST RISE AND FALL EVEN BILATERALLY. CALL LIGHT WITH PATIENT. WILL MONITOR.
[2022-10-16 00:14] VITALS: BP_SYST 118
[2022-10-16] MEDS: D5NS 1,000 ML IV SCH ×2 (02:01→06:55)
[2022-10-16] MEDS: MORPHINE 2 MG/ML INJ. SYRINGE IVP PRN ×2 (02:01→06:40)
[2022-10-16] MEDS: ONDANSETRON HCL 4 MG/2 ML VIAL IVP PRN (02:02)
--- NOTE | 2022-10-16 03:00 | NUR ---
ROUNDS NO CHANGE FROM PREVIOUS. ALL NEEDS MET. WILL MONITOR.
[2022-10-16 06:11] LABS: BASOPHILS # (AUTO) 0.1 K/uL (0.0-0.2); BASOPHILS % (AUTO) 1.2 % (0.0-2.0); EOSINOPHILS # (AUTO) 0.3 K/uL (0.0-0.4); EOSINOPHILS % (AUTO) 4.5 % (0.0-4.0); HEMATOCRIT 33.4 % (36-54); HEMOGLOBIN 11.2 g/dL (14.0-18.0); LYMPHOCYTES # (AUTO) 0.8 K/uL (1.0-5.5); MEAN CORPUSCULAR HEMOGLOBIN 30 pg (27-31); MEAN CORPUSCULAR HGB CONC 33 % (32-36); MEAN CORPUSCULAR VOLUME 89 fL (79.0-98.0); MONOCYTES # (AUTO) 0.5 K/uL (0.0-1.0); MONOCYTES % (AUTO) 7.3 % (1.7-9.3); NEUTROPHILS # (AUTO) 4.6 K/uL (1.8-7.7); PLATELET COUNT (AUTO) 272 K/uL (130-430); RED BLOOD CELL COUNT(AUTO) 3.74 MIL/uL (4.2-6.2); RED CELL DISTRIBUTION WIDTH 14.4 % (9.0-15.0); WHITE BLOOD COUNT (AUTO) 6.3 K/uL (4.8-10.8)
[2022-10-16 06:36] LABS: CALCIUM 8.2 mg/dL (8.4-11.0); CREATININE 0.75 mg/dL (0.55-1.30)
--- NOTE | 2022-10-16 06:50 | NUR ---
CLOSING NOTE PATIENT IN BED, NO S/S OF ACUTE DISTRESS. BREATHING EVEN AND UNLABORED. IVF INFUSING WELL. ALL NEEDS MET THROUGHOUT SHIFT. FALL, SAFETY PRECAUTIONS MAINTAINED THROUGHOUT SHIFT. WILL CONTINUE TO MONITOR UNTIL PATIENT CARE IS ENDORSED TO ONCOMING DAYSHIFT NURSE.
[2022-10-16 08:00] VITALS: BP_SYST 138
[2022-10-16] MEDS ORDERED: CYCL10TA24 PO (09:28)
[2022-10-16] MEDS ORDERED: HYDR-3917 PO (09:28)
[2022-10-16] MEDS ORDERED: CYCLOBENZAPRINE HCL 10 MG TABLET (FLEXERIL) PO ONE (09:30)
[2022-10-16] MEDS: PANTOPRAZOLE SODIUM 40 MG/VIAL (PROTONIX) IVP SCH (09:41)
[2022-10-16] MEDS: HYDROcodone/ACETAMIN 5-325 MG TAB (NORCO/ VICODIN) PO PRN (09:41)
[2022-10-16] MEDS: METOCLOPRAMIDE HCL 10 MG/2 ML VIAL IVP PRN (09:42)
[2022-10-16] MEDS: LIPASE/PROTEASE/AMYLASE 1 CAP PO SCH (09:42)
[2022-10-16 11:36] VITALS: BP_SYST 139
[2022-10-16 12:47] VITALS: BP_SYST 129
--- NOTE | 2022-10-16 12:50 | NUR ---
Artificial Pearl Maker re: possible ETOH over consumption In to speak with patient at bedside. The patient is alert and oriented. I introduced myself, and he was in agreement to speaking with me. Per patient, he resides in a single-story home alone. He states he was using no assistive devices. He was independent with his care needs, able to drive, and still working. He does not have a Power of Reel Operator. His familial support include his girlfriend and his father. His PCP is Dr. Bonilla in [place]. Per patient, the discharge plan is to return home. I advised the patient, that prior to discharge, he will be assessed for appropriate needs and services at time of discharge. Per patient, there are no anticipated discharge needs. The patient is in agreement to the discharge. At time of discharge, the patient states he will need an Uber Transport arranged for him. Prior to leaving the room, I inquired about his alcohol consumption. Per patient, he "does not have an alcohol problem. I am not an alcoholic. The idea of me coming up as an alcoholic came about because I have pancreatitis." Per patient, he has not had a drink in over three years. The patient was not receptive to any resources related to alcohol consumption as he states he has not had a drink. Our conversation was pleasant. The patient was respectful. He politely declined the information, therefore resources were not given to him. Addendum: 10/16/22 at 1311 by Allyssa SAHU Amended: Links added.
--- NOTE | 2022-10-16 13:52 | NUR ---
Patient d/c home via wheelchair and uber transportation provided by [facility]. Discharge instructions given to patient. Verbalized understanding. Tolerated full lunch. No complaints of pain, dizziness or shortness of breath. IV catheter removed intact.
[2022-10-16] MEDS ORDERED: CYCLOBENZAPRINE HCL 10 MG TABLET (FLEXERIL) PO SCH (21:00)
== END 2022-10-16 13:45 | disposition home or self-care (01) | DRG 871 ==
LOC: SED 13:09 → SMU 16:59
PROVIDERS: ADMIT General Practice; ATTEND General Practice
DX: A41.9 Sepsis, unspecified organism (principal); K85.90 Acute pancreatitis without necrosis or infection, unspecified; N17.0 Acute kidney failure with tubular necrosis; K86.2 Cyst of pancreas; K86.1 Other chronic pancreatitis; Z20.822 Contact with and (suspected) exposure to COVID-19; K21.9 Gastro-esophageal reflux disease without esophagitis; E87.5 Hyperkalemia; D72.829 Elevated white blood cell count, unspecified; K29.70 Gastritis, unspecified, without bleeding; Z88.0 Allergy status to penicillin; Z79.899 Other long term (current) drug therapy; Z98.84 Bariatric surgery status
CPT/HCPCS: 36415; 73560-TC; 76376; 80048; 80053; 80061; 80202; 80307; 81000; 83037; 83690; 83735; 84484; 85025; 93005; 97110-GP; 97116-GP; 97530-GP; 99285; C9113; J2270; J2405; J2765; J3370; J3475; J7050; Q9967